=== PATIENT | male | born 1985 | race Caucasian/White ===

== ENCOUNTER → 2016-05-19 | Outpatient (CLI) | payer BC ==
[~2016-05-19] MED LIST: BACTRIM DS TABL1 TA1 PO; BENTYL20 MG PO; LORTAB 5/500 TA1 TA1 PO; MOTRIN400 MG PO; NO MEDICATIONS
--- NOTE | ~2016-05-19 | MR18 ---
[facility] A Service of [facility] RADIOLOGY TEXT RESULTS PATIENT: ROXANNE BURGESS LOCATION: [facility] : [birth year] UNIT #: [id number] AGE: [address]: PHOEBE NAPOLES MD SEX: M ORDER DR: [id number] [place] [id number] MR#: [id number] Acc #: [id number] NAME: ROXANNE BURGESS : 1985 SEX: M STUDY DATE/TIME: 05/19/2016 17:18 UNIT: [facility] ROOM: STUDY DESCRIPTION: MR Brain Wo Contrast Attending Physician: Phoebe Napoles M.D. Referring Physician: Phoebe Napoles M.D. Ordering Physician: Phoebe Napoles M.D. Primary Care Physician: Milana Hager A.P.R.N. [facility] REPORT This report is preliminary unless electronic signature is present. EXAM MRI brain without 05/19/2016 COMPARISON None. HISTORY Increasing headaches, visual problems, trouble talking, stuttered speech and trouble articulating for 16 days. Status post injury. Trauma to the head by hitting a steel beam on 05/03/2016. Patient was building a garage. Post concussion syndrome. FINDINGS Multisequence, multiplanar imaging of the brain was obtained without contrast. No acute stroke, space occupying intracranial mass, mass, effect, midline shift or hydrocephalus. Vascular flow voids of the major cerebral arteries and dural venous sinuses are not obstructed on these thicker slices. Vascular flow voids of the major cerebral arteries demonstrate lack of symmetrical normal flow void in the right vertebral artery. It is probably of very small caliber. S-shaped nasal septal deviation is seen. Varying degrees of paranasal sinus mucosal thickening is seen, worse in the left maxillary antrum. Imaged orbits of the ocular structures and mastoids are unremarkable. thick slices through the sella with the pituitary gland, pineal region and upper cervical spine are within normal limits. Gradient sequence does not demonstrate any abnormality to suggest subtle hemorrhage. IMPRESSION No demonstrable intracranial abnormality. [facility] A Service of [facility] RADIOLOGY TEXT RESULTS PATIENT: ROXANNE BURGESS LOCATION: [facility] : [birth year] UNIT #: [id number] AGE: [address]: PHOEBE NAPOLES MD SEX: M ORDER DR: Dictated by... Mathew Neumann M.D. THIS IS AN ELECTRONICALLY VERIFIED REPORT Mathew Neumann M.D. at 05/23/2016 11:14 AM CPR/abigail TD: 05/22/2016 11:31 JOB #: [id number] MRI CENTER REPORT Page 1 of 1
== END | disposition home or self-care (01) ==
LOC: SMRI 17:01
DX: F07.81 Postconcussional syndrome (principal); R56.1 Post traumatic seizures; R47.89 Other speech disturbances
CPT/HCPCS: 70551